=== PATIENT | male | born 2000 | race Caucasian/White ===

== ENCOUNTER 2025-03-06 19:40 | Emergency (ER) | payer OTHER ==
[~2025-03-06] VITALS: Ht 175.3 cm; Wt 81.6 kg
[2025-03-06 20:02] VITALS: BP 116/81; TEMP 98.6; O2SAT 98
[2025-03-06] MEDS ORDERED: IBUP-1953 PO (21:15)
== END 2025-03-06 21:30 | disposition home or self-care (01) ==
LOC: ER 19:45
DX: M25.561 Pain in right knee (principal); X58.XXXA Exposure to other specified factors, initial encounter; Y93.89 Activity, other specified; Y92.89 Other specified places as the place of occurrence of the external cause; Y99.8 Other external cause status
CPT/HCPCS: 73564-TC